=== PATIENT | female | born 1960 | race Caucasian/White ===

== ENCOUNTER 2017-11-15 13:25 | Emergency (ER) | payer MEDICARE, OTHER ==
[2017-11-15 13:33] VITALS: BP 165/99; PULSE 71; RESP 18; TEMP 98.5
--- NOTE | 2017-11-15 14:01 | XR ---
EXAMINATION TYPE: XR ankle complete LT , 3 VIEWS DATE OF EXAM ORDERED: 11/15/2017 HISTORY: Pain. COMPARISON: None. FINDINGS: No fracture, dislocation or ankle joint effusion is seen. IMPRESSION: NO ACUTE OSSEOUS LESION.
--- NOTE | 2017-11-15 14:13 | ED ---
Lower Extremity Injury HPI - General Chief Complaint: Extremity Injury, Lower Stated Complaint: lt ankle injury Time Seen by Provider: 11/15/17 13:42 Source: patient, RN notes reviewed Mode of arrival: wheelchair Limitations: no limitations - History of Present Illness Initial Comments: This is a 57-year-old female who presents to the emergency department with chief complaint of left ankle injury. Patient states her on October 28 she rolled her left ankle. She states that she has been wearing a brace, wrapping it, applying ice and elevating it. Patient states that she has been on it a lot while camping and boating. Patient has been bearing weight and ambulating. She states that the ankle does not seem to be getting any better. Patient requests an Aircast. She denies any other injury or trauma. Reports pain to the lateral aspect of the left ankle. Denies recent fevers or chills, chest pain or shortness of breath, abdominal pain, nausea or vomiting, numbness or tingling. - Related Data Allergies Allergy/AdvReac Type Severity Reaction Status Date / Time amoxicillin [From Augmentin] Allergy Diarrhea Verified 11/15/17 13:29 baclofen Allergy Unknown Verified 11/15/17 13:29 clavulanic acid Allergy Diarrhea Verified 11/15/17 13:29 [From Augmentin] diclofenac [From Cataflam] Allergy Itching Verified 11/15/17 13:29 lisinopril Allergy Swelling Verified 11/15/17 13:29 Review of Systems ROS Statement: Those systems with pertinent positive or pertinent negative responses have been documented in the HPI. ROS Other: All systems not noted in ROS Statement are negative. Past Medical History Past Medical History: Hypertension History of Any Multi-Drug Resistant Organisms: None Reported Past Surgical History: Orthopedic Surgery Additional Past Surgical History / Comment(s): both shoulders Past Psychological History: Anxiety Smoking Status: Current every day smoker Past Alcohol Use History: Daily Past Drug Use History: None Reported General Exam - General Exam Comments Initial Comments: General: Awake and alert, well-developed; in no apparent distress. HEENT: Head atraumatic, normocephalic. Pupils are equal, round and reactive to light. Extraocular movements intact. Oropharynx moist without erythema or exudate. Neck: Supple. Normal ROM. Cardiovascular: Regular rate and rhythm. No murmurs, rubs or gallops. Chest symmetrical. Respiratory: Lungs clear to auscultation bilaterally. No wheezes, rales or rhonchi. Normal respiratory effort with no use of accessory muscles. Musculoskeletal: Normal range of motion of the left ankle. There is mild soft tissue swelling and tenderness over the lateral malleolus. No tenderness on palpation of foot or proximal lower extremity. Sensation is intact. Pedal pulses are 2+ equal and palpable bilaterally. Patient is ambulating normally. Skin: [place], warm and dry without rashes or lesions. Neurological: Alert and oriented x3. CN II-XII grossly intact. Speech is fluent and answers are appropriate. No focal neuro deficits. Psychiatric: Normal mood and affect. No overt signs of depression or anxiety noted. Limitations: no limitations Course Vital Signs 11/15/17 13:29 Temperature 98.5 F Pulse Rate 71 Respiratory 18 Rate Blood Pressure 165/99 O2 Sat by Pulse 100 Oximetry Medical Decision Making - Medical Decision Making This is a 57-year-old female who presents to the emergency department with chief complaint of left ankle injury. Patient reports rolling her ankle around October 28. Reports no improvement. She has been bearing weight and ambulate. X- ray was obtained which revealed no acute abnormalities. Patient is that she has been on it a lot. Patient provided with an air cast. She is also provided with follow-up to orthopedics if no improvement in her symptoms. Recommended rest, ice, elevation and to wear the Aircast while ambulating. Patient is in agreement with plan and voices understanding. She is in no acute distress and will be discharged home at this time. All questions answered. Disposition Clinical Impression: Ankle sprain and strain Disposition: HOME SELF-CARE Condition: Good Instructions: Ankle Sprain (ED) Additional Instructions: Please rest, ice, elevate and wear air cast while ambulating. Please follow-up with orthopedics if no improvement in symptoms. Please follow up with primary care provider within 1-2 days. Return to emergency department if symptoms should worsen or any concerns arise. Is patient prescribed a controlled substance at d/c from ED?: No Referrals: Nonstaff,Physician [Primary Care Provider] - 1-2 days Avni Lorenzo MD [STAFF PHYSICIAN] - 1-2 days Time of Disposition: 14:10
== END 2017-11-15 14:18 | disposition home or self-care (01) ==
LOC: EC 13:25
DX: S93.402A Sprain of unspecified ligament of left ankle, initial encounter (principal); S96.912A Strain of unspecified muscle and tendon at ankle and foot level, left foot, initial encounter; F17.200 Nicotine dependence, unspecified, uncomplicated; Z88.0 Allergy status to penicillin; Z88.6 Allergy status to analgesic agent; Z88.8 Allergy status to other drugs, medicaments and biological substances; X50.1XXA Overexertion from prolonged static or awkward postures, initial encounter
CPT/HCPCS: 99283

== ENCOUNTER 2018-01-06 06:01 | Emergency (ER) | payer OTHER, MEDICARE ==
[2018-01-06 06:09] VITALS: TEMP 97.9
[2018-01-06 06:37] LABS: Appearance,Urine Clear (Clear); Basophils # (A) 0.1 k/uL (0-0.2); Basophils % (A) 1 %; Bilirubin,Urine Negative (Negative); Blood,Urine Negative (Negative); Color,Urine Colorless; Eosinophils # (A) 0.5 k/uL (0-0.7); Eosinophils % (A) 6 %; Glucose,Urine (UA) Negative (Negative); HCT 37.5 % (34.0-46.0); HGB 11.9 gm/dL (11.4-16.0); Ketones,Urine Negative (Negative); Leukocyte Esterase,Urine Negative (Negative); Lymphocytes % (A) 33 %; MCH 31.7 pg (25.0-35.0); MCHC 31.7 g/dL (31.0-37.0); MCV 99.9 fL (80.0-100.0); Macrocytosis Slight; Mean Platelet Volume 6.2; Monocytes # (A) 0.5 k/uL (0-1.0); Monocytes % (A) 5 %; Neutrophils # (A) 4.8 k/uL (1.3-7.7); Neutrophils % (A) 53 %; Nitrite,Urine Negative (Negative); Platelet Count 417 k/uL (150-450); Protein,Urine Negative (Negative); RBC 3.75 m/uL (3.80-5.40); RDW 13.9 % (11.5-15.5); Specific Gravity,Urine 1.002 (1.001-1.035); Urobilinogen,Urine <2.0 mg/dL (<2.0)
[2018-01-06 06:46] LABS: ALT 47 U/L (9-52); AST 45 U/L (14-36); Albumin 4.3 g/dL (3.5-5.0); Alkaline Phosphatase 83 U/L (38-126); Amylase 51 U/L (30-110); Anion Gap 12 mmol/L; Blood Urea Nitrogen 6 mg/dL (7-17); Calcium 9.3 mg/dL (8.4-10.2); Carbon Dioxide 22 mmol/L (22-30); Chloride 106 mmol/L (98-107); Glucose 88 mg/dL (74-99); Lipase 67 U/L (23-300); Potassium 4.5 mmol/L (3.5-5.1); Sodium 140 mmol/L (137-145); Total Bilirubin 0.3 mg/dL (0.2-1.3); Total Protein 7.3 g/dL (6.3-8.2)
--- NOTE | 2018-01-06 06:53 | XR ---
EXAMINATION TYPE: XR KUB DATE OF EXAM: 01/06/2018 COMPARISON: NONE HISTORY: Abdominal pain TECHNIQUE: 2 views upright FINDINGS: There is no sign of intestinal obstruction or pneumoperitoneum. Fecal pattern is normal. Mck[place] ng bases are clear. There are no pathologic calcifications over the kidneys. IMPRESSION: Nonacute abdomen.
[2018-01-06] MEDS ORDERED: DICYCLOMINE 10 MG/ML 2 ML AMP IM STA (06:54)
--- NOTE | 2018-01-06 06:54 | ED ---
Abdominal Pain HPI - General Source: patient Mode of arrival: wheelchair Limitations: no limitations - History of Present Illness MD Complaint: abdominal pain Onset/Timin -: week(s) Location: suprapubic Radiation: none Migration to: no migration Severity: severe Quality: cramping Consistency: constant Improves With: nothing Worsens With: nothing Associated Symptoms: denies other symptoms <Rodrigo Mayes - Last Filed: 01/06/18 07:12> <Tee Morgan - Last Filed: 01/06/18 07:39> - General Chief Complaint: Abdominal Pain Stated Complaint: abd pain Time Seen by Provider: 01/06/18 06:11 - History of Present Illness Initial Comments: This patient is 57-year-old woman who presents to be evaluated for which she believes is uterine cramping. She indicates the suprapubic area. She states it is been going on for a week. She states it is constant. The pain has been moderate but is now severe. She has not noted worsening or relieving factors. The patient states that she had seen her primary physician and he had sent her to have a pelvic ultrasound, which she had yesterday. She states that the ultrasound did make the symptoms a little worse. Patient has not had any associated symptoms. She is not having vaginal bleeding. She has not had any change in urination. In relation to bowel movements, patient had felt that she was constipated however she did have a bowel movement yesterday and is no longer feeling this way. There is no nausea or vomiting. She has not had fevers or chills. (Rodrigo Mayes) - Related Data Home Medications Medication Instructions Recorded Confirmed ALPRAZolam [Xanax] 0.5 mg PO BID PRN 01/06/18 01/06/18 Cholecalciferol (Vitamin D3) 2,000 unit PO DAILY 01/06/18 01/06/18 [Vitamin D3] Cyclobenzaprine [Flexeril] 10 mg PO BID 01/06/18 01/06/18 Escitalopram [Lexapro] 30 mg PO DAILY 01/06/18 01/06/18 Hydrocodone/Acetaminophen [[place] 1 tab PO Q6HR PRN 01/06/18 01/06/18 5-325] Ibuprofen [Motrin] 800 mg PO TID 01/06/18 01/06/18 Losartan/Hydrochlorothiazide 1 tab PO DAILY 01/06/18 01/06/18 [Hyzaar 100-25 Tablet] [place]-3 Fatty Acids/Fish Oil [Fish 1 cap PO DAILY 01/06/18 01/06/18 Oil 1,000 mg Softgel] Vitamin E Acetate [Vitamin E] 200 unit PO DAILY 01/06/18 01/06/18 Allergies Allergy/AdvReac Type Severity Reaction Status Date / Time amoxicillin [From Augmentin] Allergy Diarrhea Verified 01/06/18 07:30 baclofen Allergy Unknown Verified 01/06/18 07:30 clavulanic acid Allergy Diarrhea Verified 01/06/18 07:30 [From Augmentin] diclofenac [From Cataflam] Allergy Itching Verified 01/06/18 07:30 lisinopril Allergy Swelling Verified 01/06/18 07:30 Review of Systems ROS Other: All systems not noted in ROS Statement are negative. Constitutional: Denies: fever, chills Respiratory: Denies: cough, dyspnea Cardiovascular: Denies: chest pain, palpitations, edema Gastrointestinal: Reports: abdominal pain. Denies: nausea, vomiting, diarrhea, constipation, melena, hematochezia Genitourinary: Denies: dysuria, frequency, hematuria, abnormal menses Musculoskeletal: Denies: back pain Skin: Denies: rash Neurological: Denies: headache <Rodrigo Mayes - Last Filed: 01/06/18 07:12> ROS Other: All systems not noted in ROS Statement are negative. <Tee Morgan - Last Filed: 01/06/18 07:39> ROS Statement: Those systems with pertinent positive or pertinent negative responses have been documented in the HPI. Past Medical History Past Medical History: Hypertension History of Any Multi-Drug Resistant Organisms: None Reported Past Surgical History: Orthopedic Surgery Additional Past Surgical History / Comment(s): both shoulders Past Psychological History: Anxiety, Depression Smoking Status: Current every day smoker Past Alcohol Use History: Daily Past Drug Use History: None Reported <Rodrigo Mayes - Last Filed: 01/06/18 07:12> General Exam Limitations: no limitations General appearance: alert, in no apparent distress Head exam: Present: atraumatic, normocephalic Eye exam: Present: normal appearance Respiratory exam: Present: normal lung sounds bilaterally. Absent: respiratory distress, wheezes, rales, rhonchi, stridor Cardiovascular Exam: Present: regular rate, normal rhythm, normal heart sounds. Absent: systolic murmur, diastolic murmur, rubs, gallop GI/Abdominal exam: Present: soft. Absent: distended, tenderness, guarding, rebound, rigid, mass, pulsatile mass, hernia Extremities exam: Present: normal inspection, normal capillary refill. Absent: pedal edema, calf tenderness Back exam: Present: normal inspection. Absent: CVA tenderness (R), CVA tenderness (L) Neurological exam: Present: alert Skin exam: Present: warm, dry, intact, normal color. Absent: rash <Rodrigo Mayes - Last Filed: 01/06/18 07:12> Vital Signs 01/06/18 01/06/18 06:06 06:15 Temperature 97.9 F Pulse Rate 87 Respiratory 22 17 Rate Blood Pressure 162/88 O2 Sat by Pulse 99 Oximetry Medical Decision Making - Lab Data Result diagrams: 01/06/18 06:25 01/06/18 06:25 <Rodrigo Mayes - Last Filed: 01/06/18 07:12> - Lab Data Result diagrams: 01/06/18 06:25 01/06/18 06:25 <Tee Morgan - Last Filed: 01/06/18 07:39> - Medical Decision Making Received a faxed report of the patient's pelvic ultrasound which is within normal limits. (Rodrigo Mayes) patient care signed out to me by previous shift physician. plan at sign out was to repeat abdominal examination and determine disposition s/p administration of bentyl. patient states her symptoms are improved. repeat abdominal exam shows no worrisome findings. patient to be discharged with follow up to primary care physician. (Tee Morgan) - Lab Data Lab Results 01/06/18 01/06/18 01/06/18 Range/Units 06:25 06:25 06:25 WBC 9.0 (3.8-10.6) k/uL RBC 3.75 L (3.80-5.40) m/uL Hgb 11.9 (11.4-16.0) gm/dL Hct 37.5 (34.0-46.0) % MCV 99.9 (80.0-100.0) fL MCH 31.7 (25.0-35.0) pg MCHC 31.7 (31.0-37.0) g/dL RDW 13.9 (11.5-15.5) % Plt Count 417 (150-450) k/uL Neutrophils % 53 % Lymphocytes % 33 % Monocytes % 5 % Eosinophils % 6 % Basophils % 1 % Neutrophils # 4.8 (1.3-7.7) k/uL Lymphocytes # 3.0 (1.0-4.8) k/uL Monocytes # 0.5 (0-1.0) k/uL Eosinophils # 0.5 (0-0.7) k/uL Basophils # 0.1 (0-0.2) k/uL Macrocytosis Slight Sodium 140 (137-145) mmol/L Potassium 4.5 (3.5-5.1) mmol/L Chloride 106 (98-107) mmol/L Carbon Dioxide 22 (22-30) mmol/L Anion Gap 12 mmol/L BUN 6 L (7-17) mg/dL Creatinine 0.58 (0.52-1.04) mg/dL Est GFR (CKD-EPI)AfAm >90 (>60 ml/min/1.73 sqM) Est GFR (CKD-EPI)NonAf >90 (>60 ml/min/1.73 sqM) Glucose 88 (74-99) mg/dL Calcium 9.3 (8.4-10.2) mg/dL Total Bilirubin 0.3 (0.2-1.3) mg/dL AST 45 H (14-36) U/L ALT 47 (9-52) U/L Alkaline Phosphatase 83 (38-126) U/L Total Protein 7.3 (6.3-8.2) g/dL Albumin 4.3 (3.5-5.0) g/dL Amylase 51 (30-110) U/L Lipase 67 (23-300) U/L Urine Color Colorless Urine Appearance Clear (Clear) Urine pH 6.0 (5.0-8.0) Ur Specific [place] 1.002 (1.001-1.035) Urine Protein Negative (Negative) Urine Glucose (UA) Negative (Negative) Urine Ketones Negative (Negative) Urine Blood Negative (Negative) Urine Nitrite Negative (Negative) Urine Bilirubin Negative (Negative) Urine Urobilinogen <2.0 (<2.0) mg/dL Ur Leukocyte Esterase Negative (Negative) Disposition <Rodrigo Mayes - Last Filed: 01/06/18 07:12> Is patient prescribed a controlled substance at d/c from ED?: No Time of Disposition: 07:37 <Tee Morgan - Last Filed: 01/06/18 07:39> Clinical Impression: Abdominal pain Disposition: HOME SELF-CARE Condition: Good Instructions: Abdominal Pain (ED) Referrals: Nonstaff,Physician [Primary Care Provider] - 1-2 days
[2018-01-06 07:50] VITALS: BP 125/69; PULSE 66; RESP 18
== END 2018-01-06 07:45 | disposition home or self-care (01) ==
LOC: EC 06:01
DX: R10.9 Unspecified abdominal pain (principal); I10 Essential (primary) hypertension; F32.9 Major depressive disorder, single episode, unspecified; F41.9 Anxiety disorder, unspecified; F17.200 Nicotine dependence, unspecified, uncomplicated; Z79.899 Other long term (current) drug therapy; Z79.1 Long term (current) use of non-steroidal anti-inflammatories (NSAID); Z88.0 Allergy status to penicillin; Z88.8 Allergy status to other drugs, medicaments and biological substances
CPT/HCPCS: 36415; 80053; 82150; 83690; 85025; 81003; 74018; 99284; 96372; J0500

== ENCOUNTER → 2019-10-18 | Outpatient (CLI) | payer MEDICARE, OTHER ==
--- NOTE | 2019-10-18 15:29 | US ---
EXAMINATION TYPE: US venous doppler duplex LE LT DATE OF EXAM: 10/18/2019 3:17 PM COMPARISON: NONE CLINICAL HISTORY: I80.9 PHLEBITIS AND THROMBOPHLEBITIS. SIDE PERFORMED: Left TECHNIQUE: The lower extremity deep venous system is examined utilizing real time linear array sonog judy with graded compression, doppler sonography and color-flow sonography. VESSELS IMAGED: External Iliac Vein (EIV) Common Femoral Vein Deep Femoral Vein Greater Saphenous Vein * Femoral Vein Popliteal Vein Small Saphenous Vein * Proximal Calf Veins (* superficial vessels) Left Leg: Negative for DVT IMPRESSION: 1. No diagnostic evidence of DVT as visualized.
== END | disposition home or self-care (01) ==
LOC: RADUSWWP 14:51
PROVIDERS: ATTEND Orthopaedic Surgery
DX: M25.562 Pain in left knee (principal); M17.12 Unilateral primary osteoarthritis, left knee; I80.9 Phlebitis and thrombophlebitis of unspecified site

== ENCOUNTER → 2020-04-17 | Outpatient (CLI) | payer MEDICARE, OTHER ==
[2020-04-17 22:30] LABS: Anion Gap 13.4 mmol/L (4.00-12.00); Carbon Dioxide 23.6 mmol/L (21.6-31.8); Potassium 4.4 mmol/L (3.5-5.5)
== END | disposition home or self-care (01) ==
LOC: LABWHC1 13:51
PROVIDERS: ATTEND Family Medicine
DX: E87.1 Hypo-osmolality and hyponatremia (principal)
CPT/HCPCS: 36415; 80051

== ENCOUNTER 2021-06-17 17:24 | Emergency (ER) | payer MEDICARE, OTHER ==
[2021-06-17 17:42] VITALS: RESP 16; TEMP 98.1
[2021-06-17] MEDS ORDERED: LORazepam 2 MG/ML INJ IV STA (17:50)
[2021-06-17 18:00] LABS: Basophils # (A) 0.1 k/uL (0-0.2); Basophils % (A) 1 %; Eosinophils # (A) 0.3 k/uL (0-0.7); Eosinophils % (A) 3 %; Lymphocytes # (A) 2.7 k/uL (1.0-4.8); Lymphocytes % (A) 21 %; MCH 33.9 pg (25.0-35.0); MCHC 34.2 g/dL (31.0-37.0); MCV 99.1 fL (80.0-100.0); Mean Platelet Volume 7.1; Monocytes # (A) 0.5 k/uL (0-1.0); Monocytes % (A) 4 %; Neutrophils # (A) 9.4 k/uL (1.3-7.7); Neutrophils % (A) 71 %; Platelet Count 447 k/uL (150-450); RBC 3.84 m/uL (3.80-5.40); WBC 13.2 k/uL (3.8-10.6)
--- NOTE | 2021-06-17 18:16 | ED ---
Chest Pain HPI - General Chief Complaint: Chest Pain Stated Complaint: chest pain Time Seen by Provider: 06/17/21 17:35 Source: patient Mode of arrival: EMS Limitations: no limitations - History of Present Illness Initial Comments: Nancy is a 61-year-old female with history of hypertension and hyperlipidemia who presents to the emergency department today via ambulance for evaluation of chest pain. Patient denies any cardiac history. She states that she had a very stressful day today, she was at her sister's house, her sister was acutely suicidal she was trying to speak with her. Patient states that during this conversation she began feeling some left-sided sharp chest pain. Patient states she thought she needed take a Xanax but her family was with what her an incentive called. Patient did take a total of 4 baby aspirin prior to arrival. She does not get nitro or aspirin from EMS. Upon arrival here patient states she feels like she is having a panic attack. - Related Data Home Medications Medication Instructions Recorded Confirmed Cyclobenzaprine [Flexeril] 10 mg PO BID PRN 01/06/18 06/17/21 Escitalopram [Lexapro] 10 mg PO DAILY 01/06/18 06/17/21 Hydrocodone/Acetaminophen [[place] 1 tab PO BID PRN 01/06/18 06/17/21 5-325] Ibuprofen [Motrin] 800 mg PO TID PRN 01/06/18 06/17/21 [place]-3 Fatty Acids/Fish Oil [Fish 1 cap PO DAILY 01/06/18 06/17/21 Oil 1,000 mg Softgel] Vitamin E (Dl,Tocopheryl Acet) 200 unit PO DAILY 01/06/18 06/17/21 [Vitamin E] ALPRAZolam [Xanax] 0.25 mg PO DAILY PRN 06/17/21 06/17/21 Clobetasol Propionate [Temovate 1 applic TOPICAL BID 06/17/21 06/17/21 0.05% Cream] Escitalopram [Lexapro] 20 mg PO DAILY 06/17/21 06/17/21 Fluticasone Nasal [place] [Flonase 1 spray EA NOSTRIL DAILY 06/17/21 06/17/21 Nasal [place]] Loratadine 10 mg PO DAILY 06/17/21 06/17/21 Losartan Potassium 100 mg PO DAILY 06/17/21 06/17/21 Multivitamins, Thera [Multivitamin 1 tab PO DAILY 06/17/21 06/17/21 (formulary)] Vitamin D3 With Vit C (Unknown 1 tab PO DAILY 06/17/21 06/17/21 Strength) hydroCHLOROthiazide 25 mg PO DAILY 06/17/21 06/17/21 Allergies Allergy/AdvReac Type Severity Reaction Status Date / Time amoxicillin [From Augmentin] Allergy Diarrhea Verified 06/17/21 18:23 baclofen Allergy Unknown Verified 06/17/21 18:23 clavulanic acid Allergy Diarrhea Verified 06/17/21 18:23 [From Augmentin] diclofenac [From Cataflam] Allergy Itching Verified 06/17/21 18:23 lisinopril Allergy Swelling Verified 06/17/21 18:23 face Review of Systems ROS Statement: Those systems with pertinent positive or pertinent negative responses have been documented in the HPI. ROS Other: All systems not noted in ROS Statement are negative. EKG Findings - EKG Comments: EKG Findings:: EKG was obtained due to complaint of chest pain, EKG was obtained at 1738, rate is 75 rhythm is sinus leftward axis normal intervals, OR 167, QRS 99, QTC mildly prolonged at 4:30. There is no acute ST elevations or depressions no evidence of ischemia or infarction. Past Medical History Past Medical History: Hypertension Additional Past Medical History / Comment(s): trigeminy History of Any Multi-Drug Resistant Organisms: None Reported Past Surgical History: Orthopedic Surgery Additional Past Surgical History / Comment(s): both shoulders Past Psychological History: Anxiety, Depression Smoking Status: Current every day smoker Past Alcohol Use History: Daily Past Drug Use History: Marijuana General Exam - General Exam Comments Initial Comments: Physical Exam GENERAL: Patient is well-developed and well-nourished. Patient is nontoxic and well- hydrated and is in no distress. HENT: Normocephalic, Atraumatic. EYES: PERRL, EOMI PULMONARY: Unlabored respirations. No audible rales rhonchi or wheezing was noted. CARDIOVASCULAR: There is a regular rate and rhythm without any murmurs gallops or rubs. ABDOMEN: Soft and nontender with normal bowel sounds. SKIN: Skin is clear with no lesions or rashes and otherwise unremarkable. : Deferred NEUROLOGIC: Patient is alert and oriented x3. Moving all extremities spontaneously MUSCULOSKELETAL: Normal extremities with adequate strength and full range of motion. No lower extremity swelling or edema. No calf tenderness. PSYCHIATRIC: Normal psychiatric evaluation. Limitations: no limitations Course Vital Signs 06/17/21 06/17/21 06/17/21 17:38 18:38 19:16 Temperature 98.1 F Pulse Rate 78 70 70 Respiratory 16 16 16 Rate Blood Pressure 183/108 170/109 166/104 O2 Sat by Pulse 96 98 Oximetry Chest Pain MDM - [facility] Patient was seen and evaluated, history is obtained from patient. Patient believes she is having a panic attack due to significant social stressors. I did offer the patient nitro she was hypertensive however patient has already had a pretty thorough knowledge of medications. She states she feels like she would like to try Ativan or Xanax first. Patient was treated with Ativan she was then noted be resting comfortably. Labs did resulted with hyponatremia and hypomagnesemia, patient did receive 1 L IV fluids and magnesium. I did offer to place the patient on observation for repeat labs and possible evaluation by nephrology for hyponatremia. Patient states that she's had hyponatremia chronically on her outpatient labs, most recent she states that her sodium was 127 that she is following with her primary care about this. I did advise the patient that her TSH was mildly elevated and she likely needs to start medication such as Synthroid which patient stated she will discuss with her primary care. She feels comfortable being discharged home at this time does not want to be admitted to the hospital. Disposition Clinical Impression: Atypical chest pain, Hyponatremia, Hypomagnesemia, Elevated TSH Disposition: HOME SELF-CARE Condition: Stable Instructions (If sedation given, give patient instructions): Chest Pain (ED) Is patient prescribed a controlled substance at d/c from ED?: No Referrals: Jon Mullins DO [Primary Care Provider] - 1-2 days
[2021-06-17 18:28] LABS: ALT 27 U/L (4-34); African American GFR (CKD) >90 (>60 ml/min/1.73 sqM); Albumin 4.2 g/dL (3.5-5.0); Anion Gap 9 mmol/L; Blood Urea Nitrogen 15 mg/dL (7-17); Calcium 9.4 mg/dL (8.4-10.2); Carbon Dioxide 25 mmol/L (22-30); Chloride 91 mmol/L (98-107); Glucose 111 mg/dL (74-99); Non-African American GFR(CKD) >90 (>60 ml/min/1.73 sqM); Sodium 125 mmol/L (137-145); Total Bilirubin 0.6 mg/dL (0.2-1.3); Total Protein 7.3 g/dL (6.3-8.2)
--- NOTE | 2021-06-17 18:35 | XR ---
EXAMINATION TYPE: XR chest 2V DATE OF EXAM: 06/17/2021 COMPARISON: NONE HISTORY: Chest pain TECHNIQUE: Frontal and lateral views of the chest are obtained. FINDINGS: There is no focal air space opacity, pleural effusion, or pneumothorax seen. The cardiac silhouette size is mildly enlarged. The osseous structures are intact. IMPRESSION: No acute cardiopulmonary process.
[2021-06-17 18:38] VITALS: PULSE 70
[2021-06-17 18:52] LABS: AST 35 U/L (14-36); Alkaline Phosphatase 79 U/L (38-126); Magnesium 1.4 mg/dL (1.6-2.3); Potassium 4.2 mmol/L (3.5-5.1)
[2021-06-17] MEDS ORDERED: MAGNESIUM SULFATE-D5W PMX 1 GM in DEXTROSE/WATER 1 100ML.BAG IVPB ONE (19:01)
[2021-06-17 19:17] VITALS: BP 166/104
[2021-06-17 19:35] LABS: INR 0.9 (<1.2); Partial Thromboplastin Time 24.9 sec (22.0-30.0); Prothrombin Time 10.3 sec (9.0-12.0)
[2021-06-17 19:39] LABS: T4, Free (Free Thyroxine) 1.01 ng/dL (0.78-2.19)
== END 2021-06-17 21:23 | disposition home or self-care (01) ==
LOC: EC 17:24
DX: R07.89 Other chest pain (principal); E87.1 Hypo-osmolality and hyponatremia; E83.42 Hypomagnesemia; R94.6 Abnormal results of thyroid function studies; I10 Essential (primary) hypertension; F32.A Depression, unspecified; F41.9 Anxiety disorder, unspecified; F17.200 Nicotine dependence, unspecified, uncomplicated; F12.90 Cannabis use, unspecified, uncomplicated; Z79.899 Other long term (current) drug therapy
CPT/HCPCS: 36415; 93005; 85379; 84439; 83880; 80053; 84443; 83735; 84484; 85025; 85610; 85730; 71046; 96365; 96375; 99285; J2060; J3475

== ENCOUNTER → 2021-08-13 | Outpatient (CLI) | payer MEDICARE, OTHER ==
--- NOTE | 2021-08-13 16:18 | BD ---
EXAMINATION TYPE: Axial Bone Density DATE OF EXAM: 08/13/2021 COMPARISON: NONE CLINICAL HISTORY: 61 years year old Female. ICD-10 CODE: M85.80 Osteopenia Height: 61 Weight: 185.0 FRAX RISK QUESTIONS: Alcohol (3 or more units per day): no Family History (Parent hip fracture): no Glucocorticoids (More than 3mos): no (Ex: prednisone, prednisolone, methylprednisolone, dexamethasone, and hydrocortisone). History of Fracture in Adulthood: yes Secondary Osteoporosis: 1. Type 1 Diabetes: no 2. Hyperthyroidism: no 3. Menopause before 45: no 4. Malnutrition: no 5. Chronic liver disease: no Rheumatoid Arthritis: yes Current Tobacco Use: yes RISK FACTORS HISTORY OF: History of Wrist Fracture: right When: as a child Surgery to Spine/Hip(right/left)/Wrist (right/left): no Family History of Osteoporosis: yes Active: no Diet low in dairy products/other sources of calcium: yes Postmenopausal woman: yes MEDICATIONS: motrin Additional History: EXAM MEASUREMENTS: Bone mineral densitometry was performed using the [employer]. Bone mineral density as measured about the Lumbar spine is: ----- L1-L4(G/cm2): 1.030 T Score Values are as follows: ----- L1: -1.2 ----- L2: -0.9 ----- L3: -1.4 ----- L4: -1.7 ----- L1-L4: -1.3 Bone mineral density : baseline Bone mineral density about the R hip (g/cm2): 0.877 Bone mineral density about the L hip (g/cm2): 0.951 T Score values are as follows: -----R Neck: -1.2 -----L Neck: -0.6 -----R Total: 0.1 -----L Total: 0.3 Bone mineral density : baseline FRAX%s: The graph provided illustrates a 9.1% chance for a major osteoporotic fx and a 1.1% chance fo r the hips probability for fx in 10 years time. IMPRESSION: Osteopenia (T Score between -2.5 and -1). There is slightly increased risk of fracture and the patient may be considered for treatment. Re-Screen 2-5 years. NOTE: T-SCORE=SD OF THE YOUNG ADULT MEAN.
--- NOTE | 2021-08-14 11:20 | MM ---
Reason for exam: screening (asymptomatic). Last mammogram was performed 19 years and 7 months ago. History: Patient is postmenopausal. Physical Findings: A clinical breast exam by your physician is recommended on an annual basis and results should be correlated with mammographic findings. MG Screening Mammo w CAD Bilateral CC and MLO view(s) were taken. Prior study comparison: August 30, 2017, mammogram, performed at [facility]. September 04, 2016, mammogram, performed at [facility]. The breast tissue is heterogeneously dense. This may lower the sensitivity of mammography. There is no discrete abnormality. No significant changes when compared with prior studies. ASSESSMENT: Negative, BI-RAD 1 RECOMMENDATION: Routine screening mammogram of both breasts in 1 year.
== END | disposition home or self-care (01) ==
LOC: RADMAMWWP 14:04
PROVIDERS: ATTEND Family Medicine
DX: Z12.31 Encounter for screening mammogram for malignant neoplasm of breast (principal); M85.89 Other specified disorders of bone density and structure, multiple sites; Z78.0 Asymptomatic menopausal state
CPT/HCPCS: 77067; 77080

== ENCOUNTER 2022-03-14 19:00 | Observation (INO) | payer MEDICARE, OTHER ==
[2022-03-14 19:11] LABS: Glucose,Whole Blood 105 mg/dL (70-110)
--- NOTE | 2022-03-14 19:19 | CT ---
EXAMINATION TYPE: CT brain wo con for TPA CT DLP: 1125.6 mGycm, Automated exposure control for dose reduction was used. DATE OF EXAM: 03/14/2022 7:14 PM COMPARISON: None. CLINICAL INDICATION:Female, 62 years old with history of Neuro deficit, acute, stroke suspected, Neur o deficit, acute, stroke suspected TECHNIQUE: Brain: Axial CT images of the brain were obtained with coronal and sagittal reformats created and rev iewed. Contrast used: None. Oral contrast used: None. FINDINGS: Brain: Extra-axial spaces: No abnormal extra-axial fluid collections. Ventricular system: Within normal limits Cerebral parenchyma: No acute intraparenchymal hemorrhage or mass effect. The quinones-white junction is well differentiated. Cerebellum: Unremarkable. Mass effect: No evidence of midline shift. Intracranial vasculature: Atherosclerotic calcifications of the intracranial vessels. Soft tissues: Normal. Calvarium/osseous structures: No depressed skull fracture. Paranasal sinuses and mastoid air cells: Mild scattered paranasal sinus disease. Visualized orbits: Orbital contents are intact. IMPRESSION: No acute intracranial process. No intercranial hemorrhage.
[2022-03-14 19:35] LABS: Basophils # (A) 0.1 k/uL (0-0.2); Basophils % (A) 1 %; Eosinophils # (A) 0.5 k/uL (0-0.7); Eosinophils % (A) 5 %; HCT 37.8 % (34.0-46.0); HGB 12.7 gm/dL (11.4-16.0); Lymphocytes # (A) 3.5 k/uL (1.0-4.8); Lymphocytes % (A) 33 %; MCH 31.5 pg (25.0-35.0); MCHC 33.5 g/dL (31.0-37.0); MCV 93.9 fL (80.0-100.0); Mean Platelet Volume 8.4; Monocytes # (A) 0.5 k/uL (0-1.0); Monocytes % (A) 5 %; Neutrophils # (A) 5.9 k/uL (1.3-7.7); Neutrophils % (A) 55 %; Platelet Count 368 k/uL (150-450); RBC 4.02 m/uL (3.80-5.40); RDW 13.5 % (11.5-15.5); WBC 10.7 k/uL (3.8-10.6)
[2022-03-14 19:49] LABS: Partial Thromboplastin Time 23.1 sec (22.0-30.0); Prothrombin Time 10.8 sec (9.0-12.0)
[2022-03-14] MEDS ORDERED: SODIUM CHLORIDE 0.9% 1,000 ML IV ONE (19:56)
--- NOTE | 2022-03-14 20:03 | ED ---
Neuro HPI - General Chief Complaint: Neuro Symptoms/Deficit Stated Complaint: CVA Time Seen by Provider: 03/14/22 19:03 Source: patient Mode of arrival: EMS Limitations: no limitations - History of Present Illness Is the patient presenting with stroke symptoms?: Yes Initial Comments: 62-year-old female with past medical history of hypertension who presents to the emergency department as a code stroke. She reports that she was at home talking to her niece when she had sudden onset of left-sided weakness. Reports weakness in her left upper and lower extremity. She also had some garbled speech. Since happened 35 minutes prior to hospital arrival. No history of stroke. Patient is not on any blood thinners. Denies any recent head trauma. This was called and they did witness the weakness. Upon transport to the hospital the symptoms have improved. No other alleviating, precipitating or modifying factors - Related Data Home Medications: Home Medications Medication Instructions Recorded Confirmed Cyclobenzaprine [Flexeril] 10 mg PO BID PRN 01/06/18 03/14/22 Escitalopram [Lexapro] 10 mg PO DAILY 01/06/18 03/14/22 Hydrocodone/Acetaminophen [[place] 1 tab PO BID PRN 01/06/18 03/14/22 5-325] [place]-3 Fatty Acids/Fish Oil [Fish 1 cap PO DAILY 01/06/18 03/14/22 Oil 1,000 mg Softgel] Vitamin E (Dl,Tocopheryl Acet) 200 unit PO DAILY 01/06/18 03/14/22 [Vitamin E] ALPRAZolam [Xanax] 0.25 mg PO DAILY PRN 06/17/21 03/14/22 Escitalopram [Lexapro] 20 mg PO DAILY 06/17/21 03/14/22 Fluticasone Nasal [place] [Flonase 1 spray EA NOSTRIL DAILY 06/17/21 03/14/22 Nasal [place]] Loratadine 10 mg PO DAILY 06/17/21 03/14/22 Losartan Potassium 100 mg PO DAILY 06/17/21 03/14/22 Multivitamins, Thera [Multivitamin 1 tab PO DAILY 06/17/21 03/14/22 (formulary)] Vitamin D3 With Vit C (Unknown 1 tab PO DAILY 06/17/21 03/14/22 Strength) Chlorthalidone [Hygroton] 25 mg PO DAILY 03/14/22 03/14/22 NIFEdipine [Adalat CC] 60 mg PO HS 03/14/22 03/14/22 Previous Rx's Medication Instructions Recorded Aspirin 81 mg PO DAILY 30 Days #30 tab 03/16/22 Atorvastatin [Lipitor] 40 mg PO DAILY 30 Days #30 tab 03/16/22 Lacosamide [Vimpat] 50 mg PO BID 60 Days #120 tab 03/16/22 Allergies/Adverse Reactions: Allergies Allergy/AdvReac Type Severity Reaction Status Date / Time amoxicillin [From Augmentin] Allergy Diarrhea Verified 03/14/22 21:15 baclofen Allergy Unknown Verified 03/14/22 21:15 clavulanic acid Allergy Diarrhea Verified 03/14/22 21:15 [From Augmentin] diclofenac [From Cataflam] Allergy Itching Verified 03/14/22 21:15 hydromorphone [From Dilaudid] Allergy Itching Verified 03/14/22 21:15 lisinopril Allergy Swelling Verified 03/14/22 21:15 face Review of Systems ROS Statement: Those systems with pertinent positive or pertinent negative responses have been documented in the HPI. ROS Other: All systems not noted in ROS Statement are negative. General Exam Limitations: no limitations General appearance: alert, in no apparent distress Head exam: Present: atraumatic, normocephalic, normal inspection Eye exam: Present: normal appearance, PERRL, EOMI. Absent: scleral icterus, conjunctival injection, periorbital swelling ENT exam: Present: normal exam, mucous membranes moist Neck exam: Present: normal inspection. Absent: tenderness, meningismus, lymphadenopathy Respiratory exam: Present: normal lung sounds bilaterally. Absent: respiratory distress, wheezes, rales, rhonchi, stridor Cardiovascular Exam: Present: regular rate, normal rhythm, normal heart sounds. Absent: systolic murmur, diastolic murmur, rubs, gallop, clicks GI/Abdominal exam: Present: soft, normal bowel sounds. Absent: distended, tenderness, guarding, rebound, rigid Extremities exam: Present: normal inspection, full ROM, normal capillary refill. Absent: tenderness, pedal edema, joint swelling, calf tenderness Back exam: Present: normal inspection Neurological exam: Present: alert, oriented X3, CN II-XII intact, other (histology tech strength 3/5 left arm. left left strength 4/5 upon arrival. no facial droop. no slurred speech) Psychiatric exam: Present: normal affect, normal mood Skin exam: Present: warm, dry, intact, normal color. Absent: rash Stroke MDM - Lab Data Result diagrams: 03/15/22 11:18 03/14/22 19:55 Lab Results 03/14/22 03/14/22 03/14/22 Range/Units 19:08 19:25 19:25 WBC 10.7 H (3.8-10.6) k/uL RBC 4.02 (3.80-5.40) m/uL Hgb 12.7 (11.4-16.0) gm/dL Hct 37.8 (34.0-46.0) % MCV 93.9 (80.0-100.0) fL MCH 31.5 (25.0-35.0) pg MCHC 33.5 (31.0-37.0) g/dL RDW 13.5 (11.5-15.5) % Plt Count 368 (150-450) k/uL MPV 8.4 Neutrophils % 55 % Lymphocytes % 33 % Monocytes % 5 % Eosinophils % 5 % Basophils % 1 % Neutrophils # 5.9 (1.3-7.7) k/uL Lymphocytes # 3.5 (1.0-4.8) k/uL Monocytes # 0.5 (0-1.0) k/uL Eosinophils # 0.5 (0-0.7) k/uL Basophils # 0.1 (0-0.2) k/uL PT 10.8 (9.0-12.0) sec INR 1.0 (<1.2) APTT 23.1 (22.0-30.0) sec Sodium (137-145) mmol/L Potassium (3.5-5.1) mmol/L Chloride (98-107) mmol/L Carbon Dioxide (22-30) mmol/L Anion Gap mmol/L BUN (7-17) mg/dL Creatinine (0.52-1.04) mg/dL Est GFR (CKD-EPI)AfAm (>60 ml/min/1.73 sqM) Est GFR (CKD-EPI)NonAf (>60 ml/min/1.73 sqM) Glucose (74-99) mg/dL POC Glucose (mg/dL) 105 (70-110) mg/dL POC Glu Warehouse Team Leader ID Charlee Estevez Calcium (8.4-10.2) mg/dL Total Bilirubin (0.2-1.3) mg/dL AST (14-36) U/L ALT (4-34) U/L Alkaline Phosphatase (38-126) U/L Troponin I (0.000-0.034) ng/mL Total Protein (6.3-8.2) g/dL Albumin (3.5-5.0) g/dL 03/14/22 03/14/22 Range/Units 19:55 19:55 WBC (3.8-10.6) k/uL RBC (3.80-5.40) m/uL Hgb (11.4-16.0) gm/dL Hct (34.0-46.0) % MCV (80.0-100.0) fL MCH (25.0-35.0) pg MCHC (31.0-37.0) g/dL RDW (11.5-15.5) % Plt Count (150-450) k/uL MPV Neutrophils % % Lymphocytes % % Monocytes % % Eosinophils % % Basophils % % Neutrophils # (1.3-7.7) k/uL Lymphocytes # (1.0-4.8) k/uL Monocytes # (0-1.0) k/uL Eosinophils # (0-0.7) k/uL Basophils # (0-0.2) k/uL PT (9.0-12.0) sec INR (<1.2) APTT (22.0-30.0) sec Sodium 134 L (137-145) mmol/L Potassium 3.5 (3.5-5.1) mmol/L Chloride 99 (98-107) mmol/L Carbon Dioxide 23 (22-30) mmol/L Anion Gap 12 mmol/L BUN 19 H (7-17) mg/dL Creatinine 0.95 (0.52-1.04) mg/dL Est GFR (CKD-EPI)AfAm 75 (>60 ml/min/1.73 sqM) Est GFR (CKD-EPI)NonAf 65 (>60 ml/min/1.73 sqM) Glucose 91 (74-99) mg/dL POC Glucose (mg/dL) (70-110) mg/dL POC Glu Warehouse Team Leader ID Calcium 9.3 (8.4-10.2) mg/dL Total Bilirubin 0.2 (0.2-1.3) mg/dL AST 20 (14-36) U/L ALT 18 (4-34) U/L Alkaline Phosphatase 78 (38-126) U/L Troponin I 0.015 (0.000-0.034) ng/mL Total Protein 6.8 (6.3-8.2) g/dL Albumin 4.2 (3.5-5.0) g/dL - Medical Decision Making Upon arrival patient was placed into trauma 2. A thorough history and physical exam was performed. IV access was established. NIH is assessed and the patient does have a score of 6. She is sent for CT imaging of her brain. Laboratory studies were conducted and reviewed. Laboratory studies within normal limits. CT and CT angiography negative. I spoke with Dr. Martínez. Patient is reevaluated and does have improvement in her NIH to 3 and then eventually to 0. I did discuss alteplase menstruation with the patient for which she does refused this medication. Patient does have rapidly improving symptoms and therefore risks of providing medication outweigh the benefits. I did discuss the results with the patient. Did recommend admission for which she was agreeable. Spoke with Dr. Quintana who agreed to admit the patient 03/14/22 20:03 EKG demonstrates sinus rhythm with a rate of 68. IA interval 168. QRS 104. QTC of 479. No acute ST segment elevations or depressions concerning for ischemic changes Past Medical History Past Medical History: Hypertension Additional Past Medical History / Comment(s): trigeminy History of Any Multi-Drug Resistant Organisms: None Reported Past Surgical History: Orthopedic Surgery Additional Past Surgical History / Comment(s): both shoulders Past Psychological History: Anxiety, Depression Smoking Status: Current every day smoker Past Alcohol Use History: Daily Past Drug Use History: Marijuana - Past Family History Mother Family Medical History: Hypertension Course Vital Signs 03/14/22 03/14/22 03/14/22 19:22 19:31 20:45 Temperature 97.5 F L 97.5 F L Pulse Rate 68 68 66 Respiratory 18 18 15 Rate Blood Pressure 102/70 102/70 101/69 O2 Sat by Pulse 91 L 93 L 92 L Oximetry Critical Care Time Critical Care Time: Yes Critical Care Time: 32 minutes Disposition Clinical Impression: TIA (transient ischemic attack) Disposition: ADMITTED IP TO THIS [facility] Condition: Stable Is patient prescribed a controlled substance at d/c from ED?: No Time of Disposition: 21:04 Decision to Admit Reason: Admit from EC Decision Date: 03/14/22 Decision Time: 21:04
--- NOTE | 2022-03-14 20:10 | CT ---
EXAMINATION TYPE: CT angio head neck CT DLP: 373 mGycm, Automated exposure control for dose reduction was used. DATE OF EXAM: 03/14/2022 8:03 PM COMPARISON: . Cine CT head. CLINICAL INDICATION:Female, 62 years old with history of Neuro deficit, acute, stroke suspected; TECHNIQUE: Axially acquired helical CT angiogram of the head and neck was obtained with contrast. Axi al images are supplemented with 3D reconstructions which [facility] NASCET criteria used. Contrast used:65cc mL of Isovue 370 with IV Contrast, Oral contrast used: None. FINDINGS: CTA HEAD: No evidence of acute intracranial hemorrhage, mass effect, or midline shift. The ventricles, sulci, a nd cisterns are unremarkable. The visualized portions of the internal carotid arteries, middle cerebral arteries, anterior cerebral arteries, and posterior cerebral arteries are patent. The basilar and vertebral arteries are patent. CTA NECK: Right Carotid System: The common carotid artery and external carotid artery are patent. The carotid bifurcation demonstrate s no evidence of hemodynamically significant stenosis. Minimal calcified plaque at the bifurcation. T he remaining portions of the internal carotid artery demonstrate normal size without significant narr owing. Left Carotid System: The common carotid artery and external carotid artery are patent. The carotid bifurcation demonstrate s no evidence of hemodynamically significant stenosis. Minimal calcified plaque at the bifurcation. T he remaining portions of the internal carotid artery demonstrate normal size without significant narr owing. Vertebral arteries are patent without evidence hemodynamically significant stenosis. There is a three-vessel aortic arch. The origins of the great vessels are patent. No evidence of hemo dynamically significant stenosis. IMPRESSION: 1. No evidence of dissection of the cervical internal carotid arteries or vertebral arteries or any e vidence of significant stenosis at the carotid bifurcations. 2. No evidence of intracranial high-grade stenosis or intracranial aneurysm.
[2022-03-14 20:29] LABS: Albumin 4.2 g/dL (3.5-5.0); Calcium 9.3 mg/dL (8.4-10.2); Potassium 3.5 mmol/L (3.5-5.1); Total Bilirubin 0.2 mg/dL (0.2-1.3); Total Protein 6.8 g/dL (6.3-8.2)
--- NOTE | 2022-03-14 21:02 | XR ---
EXAMINATION TYPE: XR chest 2V DATE OF EXAM: 03/14/2022 8:37 PM COMPARISON: Chest radiographs from 06/23/2021 TECHNIQUE: XR chest 2V Frontal and lateral views of the chest. CLINICAL INDICATION:Female, 62 years old with history of altered mental status; FINDINGS: Lungs/Pleura: Prominent interstitial lung markings are seen scattered throughout the lungs. No eviden ce of focal consolidation, pneumothorax or pleural effusion. Pulmonary vascularity: Unremarkable. Heart/mediastinum: Cardiomediastinal silhouette is enlarged and stable. Musculoskeletal: No acute osseous pathology. IMPRESSION: Similar cardiomegaly and lung appearance dating back to 06/17/2021. No evidence of acute process.
[2022-03-14] MEDS ORDERED: ASPIRIN 325 MG TAB PO STA (21:06)
[2022-03-14] MEDS ORDERED: SODIUM CHLORIDE 0.9% 1,000 ML IV SCH (21:15)
[2022-03-14] MEDS: ATORVASTATIN 40 MG TAB PO SCH (23:44)
[2022-03-15] MEDS ORDERED: ALPRAZolam 0.25 MG TAB PO PRN (01:41)
[2022-03-15] MEDS ORDERED: CYCLOBENZAPRINE 10 MG TAB PO PRN (01:41)
--- NOTE | 2022-03-15 01:41 | P.HPIM ---
History of Present Illness H&P Date: 03/14/22 The patient is a 62-year-old female with a PMH of hypertension and tobacco abuse who presents to the emergency room with concerns for stroke. The patient reports that she was in her usual state of health until about 6:30 PM earlier tonight when she suddenly developed left upper and lower extremity weakness and difficulty speaking. The patient states that she was able to find the words but the words came out garbled. The patient who is a retired ICU nurse immediately activated EMS. The patient states that her symptoms began to improve en route to the hospital. Shortly after arrival at the emergency room, all her symptoms had resolved. CT brain and CT angiogram of head and neck were unremarkable. At 68 bpm. The case was discussed by the ED physician with the neuro-chopped strand operator on-call who recommended aspirin and statin. At time of interview, the patient states that she continues to be at her baseline and had no active complaints. She denied any prior history of CVA. Denied experiencing visual disturbances, numbness, or tingling. Also denied chest discomfort, shortness of breath, fever, chills, cough. Laboratory evaluation was reviewed and was remarkable for leukocytosis at 10.7. Chest x-ray revealed cardiomegaly unchanged from May of this year. Review of systems: Pertinent positives and negatives as discussed in HPI, a complete review of s ystems was performed and all other systems are negative. Physical examination: General: non toxic, no distress, appears at stated age, overweight Derm: no unusual rashes/lesions, warm Head: atraumatic, normocephalic, symmetric Eyes: EOMI, no lid lag, anicteric sclera, pupils equal round reactive to light ENT: Nose and ears atraumatic Neck: No cervical lymphadenopathy, trachea midline, supple Mouth: no lip lesion, mucus membranes moist Cardiovascular: S1S2 reg, no murmur, positive dorsalis pedis pulse bilateral, no edema Lungs: CTA bilateral, no rhonchi, no rales, no accessory muscle use Abdominal: soft, nontender to palpation, no guarding Ext: muscle strength 5 out of 5 in all 4 extremities grossly, no gross muscle atrophy, no contractures, Neuro: CN II-XI grossly intact, no gross focal neuro deficits Psych: Alert, oriented, appropriate affect Assessment/plan TIA -Neuro checks -Fall precautions -Neurology consult -Echocardiogram -Cardiac monitoring -PT consult, AIR POLLUTION AUDITOR bala -Counseled on importance of smoking cessation -Follow-up lipid panel -Continue with aspirin, statin Leukocytosis -Likely secondary to acute stressor -No signs of active infection at this time -Monitor for now Chronic conditions: Hypertension -Continue with home meds DVT prophylaxis -Heparin subcu The patient is admitted with an anticipated less than 2 midnight stay for evaluation of TIA. CODE STATUS: Full Code Discussed with: Patient Anticipated discharge date: In a.m. Anticipated discharge place: Home Past Medical History Past Medical History: Hypertension Additional Past Medical History / Comment(s): trigeminy History of Any Multi-Drug Resistant Organisms: None Reported Past Surgical History: Orthopedic Surgery Additional Past Surgical History / Comment(s): both shoulders Past Psychological History: Anxiety, Depression Smoking Status: Current every day smoker Past Alcohol Use History: Daily Past Drug Use History: Marijuana - Past Family History Mother Family Medical History: Hypertension Medications and Allergies Home Medications Medication Instructions Recorded Confirmed Type Cyclobenzaprine [Flexeril] 10 mg PO BID PRN 01/06/18 03/14/22 History Escitalopram [Lexapro] 10 mg PO DAILY 01/06/18 03/14/22 History Hydrocodone/Acetaminophen [[place] 1 tab PO BID PRN 01/06/18 03/14/22 History 5-325] [place]-3 Fatty Acids/Fish Oil [Fish 1 cap PO DAILY 01/06/18 03/14/22 History Oil 1,000 mg Softgel] Vitamin E (Dl,Tocopheryl Acet) 200 unit PO DAILY 01/06/18 03/14/22 History [Vitamin E] ALPRAZolam [Xanax] 0.25 mg PO DAILY PRN 06/17/21 03/14/22 History Escitalopram [Lexapro] 20 mg PO DAILY 06/17/21 03/14/22 History Fluticasone Nasal [place] [Flonase 1 spray EA NOSTRIL DAILY 06/17/21 03/14/22 History Nasal [place]] Loratadine 10 mg PO DAILY 06/17/21 03/14/22 History Losartan Potassium 100 mg PO DAILY 06/17/21 03/14/22 History Multivitamins, Thera [Multivitamin 1 tab PO DAILY 06/17/21 03/14/22 History (formulary)] Vitamin D3 With Vit C (Unknown 1 tab PO DAILY 06/17/21 03/14/22 History Strength) Chlorthalidone [Hygroton] 25 mg PO DAILY 03/14/22 03/14/22 History NIFEdipine [Adalat CC] 60 mg PO HS 03/14/22 03/14/22 History Allergies Allergy/AdvReac Type Severity Reaction Status Date / Time amoxicillin [From Augmentin] Allergy Diarrhea Verified 03/14/22 21:15 baclofen Allergy Unknown Verified 03/14/22 21:15 clavulanic acid Allergy Diarrhea Verified 03/14/22 21:15 [From Augmentin] diclofenac [From Cataflam] Allergy Itching Verified 03/14/22 21:15 hydromorphone [From Dilaudid] Allergy Itching Verified 03/14/22 21:15 lisinopril Allergy Swelling Verified 03/14/22 21:15 face Physical Exam Vitals: Vital Signs Temp Pulse Resp BP Pulse Ox 03/14/22 20:45 66 15 101/69 92 L 03/14/22 19:31 97.5 F L 68 18 102/70 93 L 03/14/22 19:22 97.5 F L 68 18 102/70 91 L Intake and Output 03/14/22 03/14/22 03/15/22 14:59 22:59 06:59 Other: Weight 71.668 kg Results CBC & Chem 7: 03/14/22 19:25 03/14/22 19:55 Labs: Abnormal Lab Results - Last 24 Hours (Table) 03/14/22 03/14/22 Range/Units 19:25 19:55 WBC 10.7 H (3.8-10.6) k/uL Sodium 134 L (137-145) mmol/L BUN 19 H (7-17) mg/dL
[2022-03-15] MEDS ORDERED: INFLUENZA VACC (6 MOS-64 YRS) 60 MCG/0.5 ML SYRINGE IM ONE (05:44)
[2022-03-15] MEDS: HEPARIN SODIUM,PORCINE/PF 5,000 UNIT/0.5 ML SYRINGE SQ SCH ×2 (08:17→15:12)
[2022-03-15] MEDS: CHLORTHALIDONE 25 MG TAB PO SCH (08:17)
[2022-03-15] MEDS: LOSARTAN 50 MG TAB PO SCH (08:17)
[2022-03-15] MEDS: ASPIRIN 325 MG TAB PO SCH (08:17)
[2022-03-15] MEDS: ATORVASTATIN 40 MG TAB PO SCH (08:17)
--- NOTE | 2022-03-15 11:55 | P.CNNES ---
History of Present Illness Consult date: 03/15/22 Requesting physician: Hallie Arellano Reason for Consult: left hemispheric resolved, TIA History of Present Illness: This is a 62-year-old with medical history of hypertension, hypercholestremia, tobacco use who presented emergency department because of recurrent transient left-sided weakness. Patient stated that in the last 1 week she had 4 episode of transient left-sided weakness and yesterday was her fourth event happened around 4:30 PM and she noticed her left upper and lower extremity was weak lasted for 20 minutes. Denied any numbness, difficulty getting her words out, swallowing any visual disturbance. She said yesterday she had that prior to the 6:30 event Ally in the afternoon she had a similar presentation or her left leg was weak and it was a short in duration. She denies any auras prior to the ev ent. She denies any loss of consciousness with these episodes. She said that her limbs just give out. Denies any history of stroke or TIAs in the past. She said that she has history of hypertension and the her a blood pressure medication was modified the in which her blood pressure has been running low in the 90s systolic. Patient was taking ASA daily. Patient smokes a bit more than a pack a day for years. Denies of any illicit drug use. She socially drinks alcohol. Some other workup during his hospital visit consisted of: Initial blood pressure on presentation is 102/70. Patient glucose on presentation is 105 POC. As a result a stroke pager was activated by the ED team and on presentation the patient had NIH score of 6 that improved to 3. ED team spoke with Dr. Lee (Stroke attending). It seems that the patient refused alteplase. Because of the patient's improvement symptoms therefore the risk outweighed the benefit. Eventually patient's symptoms has resolved. CT of the head is reported as no acute intracranial process. No intracranial hemorrhage. CT angiography of the head and neck was reported as no evidence of dissection of the cervical internal carotid arteries or vertebral arteries or any evidence of significantis at the carotid bifurcation. No evidence of intracranial high- grade stenosis or intracranial aneurysm. EKG is reported as sinus rhythm. Prolonged QT interval. Abnormal EKG. Review of Systems Review of system: The 12 point system was reviewed and apparent positive and negative per HPI. Past Medical History Past Medical History: Hypertension Additional Past Medical History / Comment(s): trigeminy History of Any Multi-Drug Resistant Organisms: None Reported Past Surgical History: Orthopedic Surgery Additional Past Surgical History / Comment(s): both shoulders Past Psychological History: Anxiety, Depression Smoking Status: Current every day smoker Past Alcohol Use History: Daily Past Drug Use History: Marijuana - Past Family History Mother Family Medical History: Hypertension Medications and Allergies Home Medications Medication Instructions Recorded Confirmed Type Cyclobenzaprine [Flexeril] 10 mg PO BID PRN 01/06/18 03/14/22 History Escitalopram [Lexapro] 10 mg PO DAILY 01/06/18 03/14/22 History Hydrocodone/Acetaminophen [[place] 1 tab PO BID PRN 01/06/18 03/14/22 History 5-325] [place]-3 Fatty Acids/Fish Oil [Fish 1 cap PO DAILY 01/06/18 03/14/22 History Oil 1,000 mg Softgel] Vitamin E (Dl,Tocopheryl Acet) 200 unit PO DAILY 01/06/18 03/14/22 History [Vitamin E] ALPRAZolam [Xanax] 0.25 mg PO DAILY PRN 06/17/21 03/14/22 History Escitalopram [Lexapro] 20 mg PO DAILY 06/17/21 03/14/22 History Fluticasone Nasal [place] [Flonase 1 spray EA NOSTRIL DAILY 06/17/21 03/14/22 History Nasal [place]] Loratadine 10 mg PO DAILY 06/17/21 03/14/22 History Losartan Potassium 100 mg PO DAILY 06/17/21 03/14/22 History Multivitamins, Thera [Multivitamin 1 tab PO DAILY 06/17/21 03/14/22 History (formulary)] Vitamin D3 With Vit C (Unknown 1 tab PO DAILY 06/17/21 03/14/22 History Strength) Chlorthalidone [Hyg[place]] 25 mg PO DAILY 03/14/22 03/14/22 History NIFEdipine [Adalat CC] 60 mg PO HS 03/14/22 03/14/22 History Allergies Allergy/AdvReac Type Severity Reaction Status Date / Time amoxicillin [From Augmentin] Allergy Diarrhea Verified 03/14/22 21:15 baclofen Allergy Unknown Verified 03/14/22 21:15 clavulanic acid Allergy Diarrhea Verified 03/14/22 21:15 [From Augmentin] diclofenac [From Cataflam] Allergy Itching Verified 03/14/22 21:15 hydromorphone [From Dilaudid] Allergy Itching Verified 03/14/22 21:15 lisinopril Allergy Swelling Verified 03/14/22 21:15 face Physical Examination - Vital Signs Vital Signs: Vital Signs Temp Pulse Pulse Resp BP BP Pulse Ox 03/15/22 11:26 97.9 F 51 L 16 127/82 94 L 03/15/22 08:25 56 L 16 03/15/22 08:13 98.1 F 56 L 16 120/72 93 L 03/15/22 04:00 97.7 F 53 L 12 128/72 94 L 03/14/22 23:25 98.2 F 54 L 12 118/73 94 L 03/14/22 20:45 66 15 101/69 92 L 03/14/22 19:31 97.5 F L 68 18 102/70 93 L 03/14/22 19:22 97.5 F L 68 18 102/70 91 L Intake and Output 03/14/22 03/15/22 03/15/22 22:59 06:59 14:59 Intake Total 180 Balance 180 Intake: Oral 180 Other: Voiding Method Toilet Toilet # Voids 1 Weight 71.668 kg GENERAL: The patient is lying in bed and is not in acute distress. CHEST: The heart rate is regular rate rhythm. No murmurs to auscultation. LUNG: Clear to auscultation bilaterally no wheezing noted throughout. Not labored breathing. ABDOMEN/GI: Bowel sounds present in all 4 quadrants. No tenderness to palpation throughout. NEUROLOGICAL: Higher mental function: The patient is awake, alert, oriented to self, place and time. Patient is following commands. No aphasia and no neglect. Cranial nerves: The pupils are round, equal and reactive to light and accommodation. Visual ashley are full to confrontation throughout. Extraocular movement is intact no nystagmus is noted. Facial sensation is normal to touch throughout. The facial strength is normal throughout. Hearing is normal bilaterally to hand rub. Tongue is midline and moved [id number] without any difficulty. No dysarthria is noted. Shoulder shrug is normal bilaterally. Motor: The strength is 5 over 5 throughout. Normal tone and bulk. Cerebellum: Normal finger to nose heel to beck bilaterally. Sensation: Sensation is normal to touch throughout. Reflexes (right/left): 2+ throughout. Plantars are downgoing bilaterally. Results - Laboratory Findings CBC and BMP: 03/14/22 19:25 03/14/22 19:55 Abnormal Lab Findings: Abnormal Labs 03/14/22 03/14/22 19:25 19:55 WBC 10.7 H Sodium 134 L BUN 19 H Assessment and Plan Assessment: Acute recurrent transient weakness on left upper and lower for past one week (had 4 episodes in the last one week): TIA. Hypertension Hypercholestremia Tobacco use Plan: I ordered MRI of the brain with and without. Patient was continued on her home dose of aspirin 325 daily in addition I start Plavix 75 mg daily. Patient to be on dual antiplatelets for 21 days and after 21 days stop aspirin but continue Plavix. Patient stated that she could not tolerate Lipitor and she was tried on different statins but it seems that she was started on statin by the ED if she has any side effects from the statin recommend to stop it. I ordered a routine EEG because of recurrent episodes to rule out any underlying the seizure or discharges which seems unlikely. 2-D echo, lipid panel is ordered and is pending I ordered as well TSH Continue neuro-checks. On cardiac monitoring. PT, OT and CE[employer]ING CLEANER are consulted Patient was counseled on tobacco cessation We'll defer the rest of the medical management to the primary team For DVT prophylaxis the patient is on subcu heparin 5000 units every 8 hours. Recommend the patient follow up with a neurologist as outpatient within 1-2 weeks. If unable to get the EEG as an inpatient since would not be done until Thursday thinking that be performed as an outpatient. I highly recommend the patient stay here overnight especially with a recurrent episodes. Thank you for the consultation Time with Patient: Greater than 30
[2022-03-15 12:01] LABS: HCT 41.1 % (34.0-46.0); HGB 13.9 gm/dL (11.4-16.0); MCH 32.5 pg (25.0-35.0); MCHC 33.9 g/dL (31.0-37.0); MCV 95.8 fL (80.0-100.0); Mean Platelet Volume 8.4; Platelet Count 188 k/uL (150-450); RBC 4.29 m/uL (3.80-5.40); RDW 13.2 % (11.5-15.5); WBC 7.2 k/uL (3.8-10.6)
[2022-03-15] MEDS: CLOPIDOGREL 75 MG TAB PO SCH (12:51)
--- NOTE | 2022-03-15 14:50 | P.PN ---
Subjective Progress Note Date: 03/15/22 Hospital course: Patient is a very pleasant 62-year-old female with a past medical history of hypertension and tobacco dependency. She presented to the emergency department with a chief complaint of left upper and lower extremity weakness accompanied by her difficulties with speech. Patient reports sudden development of left upper and left lower extremity numbness and weakness accompanied by difficulty with speech. Patient reports she initially had an episode earlier in the day in which her left lower extremity became weak requiring her to sit down as she felt like her leg was going out on her but states this resided after approximately 5 minutes. She then states later that evening she developed the sudden onset upper and lower extremity weakness/numbness on her left side and was having word finding difficulties as well as garbled speech. She resorts to speech impair ent lasted approximately 2-3 minutes but left upper and lower extremity weakness did not subside until approximately 20-30 minutes later. 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 While in route to the hospital patient's symptoms began to improve. She underwent full evaluation in the emergency department. Blood glucose upon arrival was 105. CBC, coags, and CMP were completed. CBC revealed mild leukocytosis with WBC count of 10.7 and CMP revealed mild hyponatremia with sodium of 134 labs otherwise unremarkable. Troponin 0.015 and TSH of 1.730. CT brain negative for acute intercranial abnormality. CTA head and neck negative for evidence of dissection or significant stenosis and showing no evidence of intracranial stenosis or aneurysm. EKG revealed normal sinus rhythm at 68 bpm with no noted T wave or ST abnormality showing no signs of acute ischemia. Chest x-ray negative for acute cardiopulmonary process consistent with previous cardiomegaly when compared to imaging completed 06/17/21. Patient was admitted under our services with consultation to neurology. Currently patient's previous neurological symptoms of left upper and lower extremity weakness/numbness and aphasia remain subsided. Physical examination: Patient seen and fully evaluated at the bedside. Patient continues to report for resolution of previously reported neurological deficits including left upper and lower extremity weakness and aphasia. Patient denied having any headache, lightheadedness, dizziness, changes in her vision or hearing, chest pain, palpitations, shortness of breath, or recently experiencing any swelling or pain in her extremities. Patient scheduled to undergo MRI later today as well as echocardiogram. General: non toxic, no distress, appears at stated age Derm: warm, dry Head: atraumatic, normocephalic, symmetric Eyes: EOMI, no lid lag, anicteric sclera Mouth: no lip lesion, mucus membranes moist Cardiovascular: S1S2 reg, systolic murmur, positive posterior tibial pulse bilateral, Lungs: CTA bilateral, no rhonchi, no rales , no accessory muscle use Abdominal: soft, nontender to palpation, no guarding, no appreciable organomegaly Ext: no gross muscle atrophy, no edema, no contractures Neuro: CN II-XI grossly intact, no focal neuro deficits. GCS 15. Psych: Alert, oriented, appropriate affect Assessment and plan of care: TIA Left upper and lower extremity weakness accompanied by difficulties with speech -Continue neuro checks every 4 hours -Fall precautions -Neurology consult -Echocardiogram -MRI -EEG -Cardiac monitoring -PT consult, CHIEF GAUGER bala -Counseled on importance of smoking cessation -Follow-up lipid panel -Continue with aspirin, statin Leukocytosis, was likely due to acute stressor and has resolved. Hypertension -Monitor vital signs and continue daily medication regimen with losartan chlorthalidone, and Procardia. DVT prophylaxis -Heparin subcu The patient is admitted with an anticipated less than 2 midnight stay for evaluation of TIA. CODE STATUS: Full Code Discussed with: Patient Anticipated discharge date: 1-[address]: Home A total of 35 minutes was spent on the care of this complex patient more than 50% of the time was spent in counseling and care coordination. I reviewed the documentation as provided by the RAVEN above, who is the original author of this note. I agree with the documented assessment and plan, with the following changes: none Objective - Vital Signs Vital signs: Vital Signs Temp 98.1 F 03/15/22 08:13 Pulse 56 L 03/15/22 08:25 Resp 16 03/15/22 08:25 BP 120/72 03/15/22 08:13 Pulse Ox 93 L 03/15/22 08:13 FiO2 Intake & Output 03/14/22 03/15/22 03/15/22 18:59 06:59 18:59 Intake Total 180 Balance 180 Weight 71.668 kg Intake: Oral 180 Other: Voiding Method Toilet Toilet # Voids 1 - Labs CBC & Chem 7: 03/15/22 11:18 03/14/22 19:55 Labs: Abnormal Lab Results - Last 24 Hours (Table) 03/14/22 03/14/22 Range/Units 19:25 19:55 WBC 10.7 H (3.8-10.6) k/uL Sodium 134 L (137-145) mmol/L BUN 19 H (7-17) mg/dL
[2022-03-15] MEDS: NICOTINE 21MG/24HR PATCH TRANSDERM SCH (15:11)
--- NOTE | 2022-03-15 15:44 | MR ---
EXAMINATION TYPE: MR brain wo/w con DATE OF EXAM: 03/15/2022 COMPARISON: None HISTORY: left sided weakness CONTRAST: Standard multiplanar, multisequence MRI departmental protocol images were obtained without contrast a nd with 7 mL intravenous Gadavist gadolinium contrast. Ventricles of normal size. There is no mass effect or midline shift. No sign of intracranial hemorrha ge. Calvarium is intact. There is mild cerebral cortical atrophy. Corpus callosum is intact. Sella turcica is intact. No evidence of orbital mass. On the FLAIR images there are scattered white matter high signal foci in the periventricular region m easuring up to 1.5 cm. Total numbers less than 15 and most of these measure less than 4 mm. There is bulky appearance of the choroid plexus measuring 16 mm in the right lateral ventricle in the temporal horn. No hydrocephalus. No evidence of orbital mass. IMPRESSION: Mild atrophy. There is bulky right sided choroid plexus in the temporal horn of the right lateral laz tricle but no definite mass. This is likely of no clinical significance. White matter mild signal changes in the periventricular region are nonspecific and could relate to mi crovascular ischemia or demyelinating disease.
[2022-03-15 17:16] LABS: Chol/HDL Ratio 4.79 Ratio; LDL Cholesterol,Calculated 182.9 mg/dL (0.0-131.0)
[2022-03-15] MEDS ORDERED: HYDROcodone/APAP 5-325MG 1 EACH TAB PO PRN (17:54)
[2022-03-16] MEDS: HEPARIN SODIUM,PORCINE/PF 5,000 UNIT/0.5 ML SYRINGE SQ SCH ×2 (00:16→10:07)
[2022-03-16 08:45] VITALS: BP 148/90; TEMP 97.8
[2022-03-16] MEDS: ASPIRIN 325 MG TAB PO SCH (08:46)
[2022-03-16] MEDS: ATORVASTATIN 40 MG TAB PO SCH (08:46)
[2022-03-16] MEDS: CLOPIDOGREL 75 MG TAB PO SCH (08:46)
[2022-03-16] MEDS: CHLORTHALIDONE 25 MG TAB PO SCH (08:47)
[2022-03-16] MEDS: LOSARTAN 50 MG TAB PO SCH (08:47)
[2022-03-16 08:53] VITALS: PULSE 56; RESP 16
[2022-03-16] MEDS ORDERED: ESCITALOPRAM 10 MG TAB PO SCH (09:00)
[2022-03-16] MEDS ORDERED: ESCITALOPRAM 20 MG TAB PO SCH (09:00)
[2022-03-16] MEDS: NICOTINE 21MG/24HR PATCH TRANSDERM SCH (10:07)
--- NOTE | 2022-03-16 12:15 | P.PN ---
Subjective Progress Note Date: 03/16/22 The patient is seen at bedside and states no further episodes of weakness. She continues to feel at baseline. Objective - Vital Signs Vital signs: Vital Signs Temp 97.8 F 03/16/22 08:43 Pulse 56 L 03/16/22 08:51 Resp 16 03/16/22 08:51 BP 148/90 03/16/22 08:43 Pulse Ox 99 03/16/22 08:43 FiO2 Intake & Output 03/15/22 03/16/22 03/16/22 18:59 06:59 18:59 Intake Total 1440 180 Balance 1440 180 Intake: Oral 1440 180 Other: Voiding Method Toilet Toilet Toilet # Voids 2 3 - Exam GENERAL: The patient is lying in bed and is not in acute distress. NEUROLOGICAL: Higher mental function: The patient is awake, alert, oriented to self, place and time. Patient is following commands. No aphasia and no neglect. Cranial nerves: The pupils are round, equal and reactive to light and accommodation. Visual ashley are full to confrontation throughout. Extraocular movement is intact no nystagmus is noted. Facial sensation is normal to touch throughout. The facial strength is normal throughout. Hearing is normal bilaterally to hand rub. Tongue is midline and moved [id number] without any difficulty. No dysarthria is noted. Shoulder shrug is normal bilaterally. Motor: The strength is 5 over 5 throughout. Normal tone and bulk. Cerebellum: Normal finger to nose heel to beck bilaterally. Sensation: Sensation is normal to touch throughout. Reflexes (right/left): 2+ throughout. Plantars are downgoing bilaterally. Some other workup during his hospital visit consisted of: Lipid panel is triglycerides 197, cholesterol is 281, LDL is 182 and HDL is [address] is [address] of the head is reported as no acute intracranial process. No intracranial hemorrhage. CT angiography of the head and neck was reported as no evidence of dissection of the cervical internal carotid arteries or vertebral arteries or any evidence of significantis at the carotid bifurcation. No evidence of intracranial high- grade stenosis or intracranial aneurysm. MRI of the brain is reported as mild atrophy. There is bulky right-sided choroid plexus and temporal horn on the right lateral ventricle but not definite of mass. This is likely of no focal significance. White matter mild signal changes in the periventricular region are nonspecific and could relate to microvascular ischemia would remind disease. I personally reviewed MRI Brain with Dr. Erwin and he felt was masslike enhancement over the right lateral ventricle within the choroid plexus and there is asymmetric choroids was cyst over the left more than the right. There is no stroke - Labs CBC & Chem 7: 03/15/22 11:18 03/14/22 19:55 Labs: Abnormal Lab Results - Last 24 Hours (Table) 03/15/22 Range/Units 11:18 Triglycerides 197.00 H (0.00-149.00) mg/dL Cholesterol 281.00 H (0.00-200.00) mg/dL LDL Cholesterol, Calc 182.9 H (0.0-131.0) mg/dL Assessment and Plan Assessment: Acute recurrent transient weakness on left upper and lower for past one week (had 4 episodes in the last one week): I feel likely due mass-like over the right lateral ventricle stemming in choroid. MRI Brain is negative for stroke and I do not feel these episodes are TIA. I feel more due to mass-like effect and rule out seizure. Hypertension Hypercholestremia Tobacco use Plan: Because of large mass-like over the right posterior later ventricle stemming in choroid plexus: I recommend patient to follow-up with neurosurgeon as outpatient. I ordered a routine EEG because of recurrent episodes to rule out any underlying the seizure or discharges but no tech today so will get it done as outpatient since does not want to stay till tomorrow. If normal recommend prolonged EEG. I started the patient on Vimpat 50 1 tab bid as seizure prophylaxis (because of mass-like and I feel possibly causing her symptoms). Not Keppra since stated has severe depression and is very cook which Keppra can worsens her symptoms. Will defer intermediate frame tender antiepileptic use to her outpatient neurologist. Patient was continued on her home dose of aspirin 325 daily. No need for dual antiplatelets. Patient could not tolerate statin in past. Continue neuro-checks. On cardiac monitoring. PT, OT and LIVE OUT NANNY are consulted Patient was counseled on tobacco cessation We'll defer the rest of the medical management to the primary team For DVT prophylaxis the patient is on subcu heparin 5000 units every 8 hours. Recommend the patient follow up with a neurologist as outpatient within 1-2 weeks and neurosurgeon as outpatient. The plan is discussed with the patient and primary team. Otherwise no additional work-up is needed. Time with Patient: Less than 30
[2022-03-16] MEDS: LACOSAMIDE 50 MG TABLET PO SCH ×2 (12:31→13:18)
--- NOTE | 2022-03-16 13:26 | P.DS ---
Providers Date of admission: 03/14/22 21:06 Expected date of discharge: 03/16/22 Attending physician: Shanell Quintana MD Consults: 03/14/22 21:10 Consult Physician Urgent Consulting Provider: Dante Baez Consult Reason/Comments: left hemiparesis-resolved, tia Do you want consulting provider notified?: Yes Primary care physician: Jon Prior Hospital Course: Discharge Diagnosis: Recurrent episodes of transient weakness to left upper and lower extremities are accompanied by aphasia. MRI brain revealing mild atrophy and bulky right-sided choroid plexus in the temporal horn of the right lateral ventricle, unable to rule out underlying mass along with mild white matter signal changes in the periventricular region possibly related to microvascular ischemia or demyelinating disease. Patient was evaluated by neurology. Recommending continuation of aspirin and discontinuation of Plavix. Neurology started patient on Vimpat 50 mg twice a day and recommending she follow up outpatient with neurosurgeon for evaluation and neurology for EEG. Hypertension, monitor vital signs closely and continue daily medication regimen with nifedipine, losartan, and chlorthalidone. Hyperlipidemia, total cholesterol 281, triglycerides 197, and LDL 182.9. Patient started on atorvastatin 40 mg daily. Tobacco dependence recommend smoking cessation., Leukocytosis, likely secondary to stressor. Resolved. Hospital Course: Patient is a very pleasant 62-year-old female with a past medical history of hypertension and tobacco dependency. She presented to the emergency department with a chief complaint of left upper and lower extremity weakness accompanied by her difficulties with speech. Patient reports sudden development of left upper and left lower extremity numbness and weakness accompanied by difficulty with speech. Patient reports she [facility] lower extremity became weak requiring her to sit down as she felt like her leg was going out on her but states this resided after approximately 5 minutes. She then states later that evening she developed the sudden onset upper and lower extremity weakness/numbness on her left side and was having word finding difficulties as well as garbled speech. She resorts to speech impairment lasted approximately 2-3 minutes but left upper and lower extremity weakness did not subside until approximately 20-30 minutes later. 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 While in route to the hospital patient's symptoms began to improve. She underwent full evaluation in the emergency department. Blood glucose upon arrival was 105. CBC, coags, and CMP were completed. CBC revealed mild leukocytosis with WBC count of 10.7 and CMP revealed mild hyponatremia with sodium of 134 labs otherwise unremarkable. Troponin 0.015 and TSH of 1.730. CT brain negative for acute intercranial abnormality. CTA head and neck negative for evidence of dissection or significant stenosis and showing no evidence of intracranial stenosis or aneurysm. EKG revealed normal sinus rhythm at 68 bpm with no noted T wave or ST abnormality showing no signs of acute ischemia. Chest x-ray negative for acute cardiopulmonary process consistent with previous cardiomegaly when compared to imaging completed 06/17/21. Patient was admitted under our services with consultation to neurology. Currently patient's previous neurological symptoms of left upper and lower extremity weakness/numbness and aphasia remain subsided. Patient was monitored overnight. She underwent an MRI which revealed mild atrophy and bulky right-sided choroid plexus in the temporal horn of the right lateral ventricle, unable to rule out underlying mass along with mild white matter signal changes in the periventricular region possibly related to microvascular ischemia or demyelinating disease. Patient had no further episodes since arrival to our facility. Patient was evaluated by neurology. Recommending continuation of aspirin and discontinuation of Plavix. Neurology started patient on Vimpat 50 mg twice a day and recommending she follow up outpatient with neurosurgeon for evaluation and neurology for EEG. Medically, patient is stable for discharge at this time and to follow up outpati ent with PCP, neurology, and neurosurgery. Physical examination: General: non toxic, no distress, appears at stated age Derm: warm, dry Head: atraumatic, normocephalic, symmetric Eyes: EOMI, no lid lag, anicteric sclera Mouth: no lip lesion, mucus membranes moist Cardiovascular: S1S2 reg, systolic murmur, positive posterior tibial pulse bilateral, Lungs: CTA bilateral, no rhonchi, no rales , no accessory muscle use Abdominal: soft, nontender to palpation, no guarding, no appreciable organomegaly Ext: no gross muscle atrophy, no edema, no contractures Neuro: CN II-XI grossly intact, no focal neuro deficits. GCS 15. Psych: Alert, oriented, appropriate affect A total of 36 minutes of time were spent preparing this complex discharge summary. Pt was discharged on 03/16/22 at 1:08 PM. I reviewed the documentation as provided by the RAVEN above, who is the original author of this note. I agree with the documented assessment and plan, with the following changes: none Patient Condition at Discharge: Stable Plan - Discharge Summary New Discharge Prescriptions: New Atorvastatin [Lipitor] 40 mg PO DAILY 30 Days #30 tab Lacosamide [Vimpat] 50 mg PO BID 60 Days #120 tab Aspirin 81 mg PO DAILY 30 Days #30 tab Continue Vitamin E (Dl,Tocopheryl Acet) [Vitamin E] 200 unit PO DAILY [place]-3 Fatty Acids/Fish Oil [Fish Oil 1,000 mg Softgel] 1 cap PO DAILY Hydrocodone/Acetaminophen [[place] 5-325] 1 tab PO BID PRN PRN Reason: Pain Cyclobenzaprine [Flexeril] 10 mg PO BID PRN PRN Reason: Muscle Spasm Escitalopram [Lexapro] 10 mg PO DAILY Vitamin D3 With Vit C (Unknown Strength) 1 tab PO DAILY ALPRAZolam [Xanax] 0.25 mg PO DAILY PRN PRN Reason: Anxiety Escitalopram [Lexapro] 20 mg PO DAILY NIFEdipine [Adalat CC] 60 mg PO HS Multivitamins, Thera [Multivitamin (formulary)] 1 tab PO DAILY Loratadine 10 mg PO DAILY Fluticasone Nasal [place] [Flonase Nasal [place]] 1 spray EA NOSTRIL DAILY Losartan Potassium 100 mg PO DAILY Chlorthalidone [Hygroton] 25 mg PO DAILY Discharge Medication List Cyclobenzaprine [Flexeril] 10 mg PO BID PRN 01/06/18 [History] Escitalopram [Lexapro] 10 mg PO DAILY 01/06/18 [History] Hydrocodone/Acetaminophen [[place] 5-325] 1 tab PO BID PRN 01/06/18 [History] [place]-3 Fatty Acids/Fish Oil [Fish Oil 1,000 mg Softgel] 1 cap PO DAILY 01/06/18 [History] Vitamin E (Dl,Tocopheryl Acet) [Vitamin E] 200 unit PO DAILY 01/06/18 [History] ALPRAZolam [Xanax] 0.25 mg PO DAILY PRN 06/17/21 [History] Escitalopram [Lexapro] 20 mg PO DAILY 06/17/21 [History] Fluticasone Nasal [place] [Flonase Nasal [place]] 1 spray EA NOSTRIL DAILY 06/17/21 [History] Loratadine 10 mg PO DAILY 06/17/21 [History] Losartan Potassium 100 mg PO DAILY 06/17/21 [History] Multivitamins, Thera [Multivitamin (formulary)] 1 tab PO DAILY 06/17/21 [History] Vitamin D3 With Vit C (Unknown Strength) 1 tab PO DAILY 06/17/21 [History] Chlorthalidone [Hygroton] 25 mg PO DAILY 03/14/22 [History] NIFEdipine [Adalat CC] 60 mg PO HS 03/14/22 [History] Aspirin 81 mg PO DAILY 30 Days #30 tab 03/16/22 [Rx] Atorvastatin [Lipitor] 40 mg PO DAILY 30 Days #30 tab 03/16/22 [Rx] Lacosamide [Vimpat] 50 mg PO BID 60 Days #120 tab 03/16/22 [Rx] Follow up Appointment(s)/Referral(s): Mane Narvaez MD [STAFF PHYSICIAN] - 1 Week (Follow-up with cardiology, recommend echocardiogram as discussed.) Franklin Rodriguez MD [REFERRING] - 3 Days (PCP- please call thursday to schedule appointment. ) Leesa Scherer MD [Medical Doctor] - 1 Week (Neurologist- please call thursday to schedule appointment. ) JUAN ANTONIO SOTO DO [REFERRING] - 3 Days (Neurosurgeon, make appointment for follow up. Please call Thursday to schedule.) Patient Instructions/Handouts: Transient Ischemic Attack (DC) Activity/Diet/Wound Care/Special Instructions: Activity: As tolerated. Take breaks as needed. Diet: Heart healthy and carb consistent diet. Avoid salts, or foods with hidden salts such as canned or boxed foods and frozen dinners. Extra salt makes your heart work harder and traps the fluid in your body for longer. Special Instructions: Take all of your medications as directed and remember to keep all of your doctor's appointments and follow-up as needed. It is important free to follow-up with neurosurgeon, please call Thursday to schedule appointment. You will also need to follow up with neurologist as discussed for completion of EEG. Recommend smoking cessation. Remember, prescriptions were sent to pharmacy and after further reviewing MRI, neurology took you off of Plavix. Attempted to call pharmacy to cancel this prescription, however pharmacy was closed. 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 Do not take Plavix. Thank you for allowing us to participate in your care, it was truly a pleasure having you for our patient!!! Discharge Disposition: HOME SELF-CARE
== END 2022-03-16 13:34 | disposition home or self-care (01) ==
LOC: EC 19:00 → 3SCARD 21:06
PROVIDERS: ADMIT Internal Medicine; ATTEND Internal Medicine
DX: G45.9 Transient cerebral ischemic attack, unspecified (principal); R47.01 Aphasia; G81.94 Hemiplegia, unspecified affecting left nondominant side; I67.2 Cerebral atherosclerosis; E87.1 Hypo-osmolality and hyponatremia; R00.8 Other abnormalities of heart beat; F32.A Depression, unspecified; F41.9 Anxiety disorder, unspecified; F12.90 Cannabis use, unspecified, uncomplicated; F17.200 Nicotine dependence, unspecified, uncomplicated; I11.9 Hypertensive heart disease without heart failure; D72.829 Elevated white blood cell count, unspecified; E78.00 Pure hypercholesterolemia, unspecified; R94.31 Abnormal electrocardiogram [ECG] [EKG]; Z79.899 Other long term (current) drug therapy; Z79.82 Long term (current) use of aspirin; Z88.8 Allergy status to other drugs, medicaments and biological substances; Z88.1 Allergy status to other antibiotic agents; Z82.49 Family history of ischemic heart disease and other diseases of the circulatory system; Z79.02 Long term (current) use of antithrombotics/antiplatelets; Z23 Encounter for immunization
CPT/HCPCS: 96372; 99291; 36415; 93005; 80061; 80053; 84443; 84484; 85025; 85027; 85610; 85730; 71046; 70496; 70450; 70498; 70553; 90686; G0378 ×3; G0008; A9585; Q9967; J1644

== ENCOUNTER → 2022-03-18 | Outpatient (CLI) | payer MEDICARE, OTHER ==
--- NOTE | 2022-03-18 12:41 | XR ---
EXAMINATION TYPE: XR shoulder complete LT DATE OF EXAM: 03/18/2022 12:16 PM INDICATION: Patient age:Female; 62 years old; Reason for study: M19.012; COMPARISON: Left shoulder radiograph 10/07/2010 TECHNIQUE: The left shoulder was examined in AP, axillary, internally rotated and scapular Y project ions. . FINDINGS: No acute fracture or dislocation. Severe osteophytic changes with joint space narrowing and marginal spurring. Osseous loose body along the posterior lateral aspect of the shoulder joint. Surgical clip projects over the medial aspect of the glenoid again. AC joint appears to be intact. The remaining po rtions of the visualized chest are unremarkable. IMPRESSION: 1. No acute osseous pathology. 2. Severe osteoarthritic changes of the left shoulder with a loose body identified.
--- NOTE | 2022-03-18 12:42 | XR ---
EXAMINATION TYPE: XR thoracic spine complete DATE OF EXAM: 03/18/2022 12:16 PM INDICATION: Patient age:Female; 62 years old; Reason for study: M47.812,M47.814,M19.012; [facility]. COMPARISON: None TECHNIQUE: 3 views of the thoracic spine in frontal, lateral, swimmer's projections. FINDINGS: No evidence of acute fracture. No evidence of loss vertebral body height. Multilevel disc space narro wing with endplate sclerosis and anterior osteophytosis. No spinal listhesis. Slight increase in thor acic kyphosis. IMPRESSION: 1. No acute osseous pathology. 2. [id number] multilevel degenerative disc disease.
--- NOTE | 2022-03-18 12:44 | XR ---
EXAMINATION TYPE: XR cervical spine w flex/ext DATE OF EXAM: 03/18/2022 12:16 PM INDICATION: Patient age:Female; 62 years old; Reason for study: M47.812,M47.814,M19.012; [facility]. COMPARISON: Cervical spine radiographs 10/07/2010. TECHNIQUE: The cervical spine was imaged in frontal, lateral, oblique, flexion, and extension project ions. FINDINGS: The osseous structures show normal alignment without evidence of an acute fracture. There are osteoph ytes noted throughout the cervical spine on the anterior and lateral aspects of the vertebral bodies. The intervertebral disk spaces are preserved. Pedicles are intact. Soft tissues are within normal limits. The odontoid appears intact. IMPRESSION: 1. No fracture or dislocation. 2. Mild degenerative disc disease changes of the cervical spine.
== END | disposition home or self-care (01) ==
LOC: RADXRMAIN 11:35
PROVIDERS: ATTEND Physical Medicine & Rehabilitation
DX: M51.34 Other intervertebral disc degeneration, thoracic region (principal); M50.30 Other cervical disc degeneration, unspecified cervical region; M19.012 Primary osteoarthritis, left shoulder; M47.812 Spondylosis without myelopathy or radiculopathy, cervical region; M47.814 Spondylosis without myelopathy or radiculopathy, thoracic region
CPT/HCPCS: 72052; 72072

== ENCOUNTER → 2022-03-26 | Outpatient (CLI) | payer MEDICARE, OTHER ==
--- NOTE | 2022-03-26 22:24 | EEG ---
ELECTROENCEPHALOGRAM REPORT PREAMBLE: This is a 62-year-old female, who has recurrent right-sided weakness. She was recently admitted to [facility] for increased right-sided weakness that was progressing over 4 weeks. Denies any loss of consciousness. CURRENT MEDICATIONS: 1. Vitamins. 2. [place]. 3. Vimpat. 4. Lexapro. 5. Flexeril. EEG FINDINGS: This is a 21-channel digital EEG recorded with video component, utilizing 10/20 international system with referential and bipolar montages. Background consists of well developed, well regulated moderate voltage activity in 9 hertz alpha. Background is posterior dominant and reactive to eye opening and closing. Photic driving response was not seen. Some drowsiness was seen with appearance of bilaterally symmetric theta frequency rhythm. Deeper stages of sleep were not seen. Hyperventilation was not done. No focal or generalized epileptiform activity was seen. EKG channel showed no obvious arrhythmia. IMPRESSION: This is a normal awake and drowsy EEG. No focal, lateralized or epileptiform activity was seen. MMODL / IJN: [id number] /
== END ==
LOC: NEUROMAIN 12:58
PROVIDERS: ATTEND Student in an Organized Health Care Education/Training Program
DX: R53.1 Weakness (principal); F17.200 Nicotine dependence, unspecified, uncomplicated; Z88.0 Allergy status to penicillin; Z88.1 Allergy status to other antibiotic agents; Z88.5 Allergy status to narcotic agent; Z88.8 Allergy status to other drugs, medicaments and biological substances
CPT/HCPCS: 95816

== ENCOUNTER 2023-12-18 12:23 | Emergency (ER) | payer MEDICARE, OTHER ==
[2023-12-18] MEDS ORDERED: IBUPROFEN 600 MG TAB PO ONE (13:42)
--- NOTE | 2024-01-25 14:10 | XR ---
[facility] - Radiology Report Patient: Nancy Wilburn Ordering Physician: Unknown, Unknown ID: [id number] Phone, Pager: Phone: N/A Pager: N/A : [phone] Age/Gender: 63Y, F Primary Location: N/A Procedure: XR wrist complete LT Study Date: 12/18/2023 1:55:00 PM EXAMINATION TYPE: Wrist X-Ray Complete Left DATE OF EXAM: 12/18/2023 CLINICAL HISTORY: pain TECHNIQUE: Frontal, lateral and oblique images of the left wrist are obtained. COMPARISON: None. FINDINGS: There is tiny curvilinear density noted at the ulnar styloid. This could reflect small chip fracture. There is vague lucency noted involving the distal radius. On the lateral view posteriorly there is vague lucency. There is also soft tissue swelling. Virtually nondisplaced distal radial frac ture is difficult to exclude. Severe narrowing first carpometacarpal joint space with bony collapse s een. IMPRESSION: As above
== END 2023-12-18 15:49 | disposition home or self-care (01) ==
LOC: EC 12:23
CPT/HCPCS: 99283

== ENCOUNTER → 2024-01-22 | Outpatient (CLI) | payer MEDICARE, OTHER ==
--- NOTE | 2024-01-22 18:58 | BD ---
EXAMINATION TYPE: Axial Bone Density DATE OF EXAM: 01/22/2024 CLINICAL HISTORY: 63 years old Female. ICD-10 CODE: M85.80 DISORDER OF BONE, Z13.820 Height: 61.2 Weight: 182 FRAX RISK QUESTIONS: Family History (Parent hip fracture): yes Glucocorticoids (More than 3mos): yes, for copd (Ex: prednisone, prednisolone, methylprednisolone, dexamethasone, and hydrocortisone). History of Fracture in Adulthood: yes 3. Menopause before 45: no at 48 Rheumatoid Arthritis: yes Current Tobacco Use: yes, states she quit recently RISK FACTORS HISTORY OF: hx of right foot fx, and left shoulder, left wrist just recently History of Wrist Fracture: right, as an adult lt wrist recently MEDICATIONS: motrin, vit d, bp meds, hx of statins for cholesterol, EXAM MEASUREMENTS: Bone mineral densitometry was performed using the [employer] System. Bone mineral density as measured about the Lumbar spine is: ----- L1-L4(G/cm2): 1.065 T Score Values are as follows: ----- L1: -1.1 ----- L2: -1.0 ----- L3: -1.5 ----- L4: -0.5 ----- L1-L4: -1.0 Z Score Values are as follows: ----- L1: -1.1 ----- L2: -1.0 ----- L3: -1.5 ----- L4: -0.5 ----- L1-L4: -1.0 Bone mineral density has: Increased 3.4% since study of: 08.13.2021 Bone mineral density about the R hip (g/cm2): 1.00 Bone mineral density about the L hip (g/cm2): 1.073 T Score values are as follows: -----R Neck: -0.9 -----L Neck: -0.5 -----R Total: -0.1 -----L Total: 0.5 Z Score values are as follows: -----R Neck: 0.2 -----L Neck: 0.5 -----R Total: 0.6 -----L Total: 1.2 Bone mineral density has: Increased 0.2% since study of: 08.13.2021 FRAX%s: The graph provided illustrates a 23.3% chance for a major osteoporotic fx and a 3.1% chance f or the hips probability for fx in 10 years time. IMPRESSION: Normal (Values between +1 and -1 indicate normal bone mass). Consider repeating this study in 5 year s or sooner if there is some new clinical indication. NOTE: T-SCORE=SD OF THE YOUNG ADULT MEAN. [facility], , 01/22/2024 6:56 PM
--- NOTE | 2024-01-25 11:09 | MM ---
Reason for Exam: Screening (asymptomatic). Last mammogram was performed 2 year(s) and 5 month(s) ago. Patient History: Menarche at age 14. First Full-Term at age 24. Postmenopausal. Risk Values: Oliva 5 year model risk: 1.3%. NCI Lifetime model risk: 5.5%. Prior Study Comparison: 09/04/2016 Screening Mammogram, [facility] [place]. 08/30/2017 Screening Mammogram, [facility] [place]. 08/13/2021 Bilateral Screening Mammogram, [facility]. Tissue Density: There are scattered areas of fibroglandular density. Findings: Analyzed By CAD. Right breast: There is no suspicious group of microcalcifications or new suspicious mass. Left breast: There is no suspicious group of microcalcifications or new suspicious mass. Overall Assessment: Negative, BI-RAD 1 Management: Screening Mammogram of both breasts in [address] [facility] will attempt to contact patient to return for supplemental views and ultrasound if indicated. Patient should continue monthly self-breast exams. A clinical breast exam by your physician is recommended on an annual basis. This exam should not preclude additional follow-up of suspicious palpable abnormalities. Note on Oliva scores and lifetime risk: 1. A Oliva score greater than 3% is considered moderate risk. If this is the case, consider specialist referral to assess eligibility for a risk reducing agent. 2. If overall lifetime risk for the development of breast cancer is 20% or higher, the patient may qualify for future screening with alternating mammogram and breast MRI. [facility], , 01/25/2024 11:06 AM. Electronically signed and approved by: Siddhartha Paige DO
== END | disposition home or self-care (01) ==
LOC: RADMAMWWP 12:47
PROVIDERS: ATTEND Family Medicine
DX: M85.80 Other specified disorders of bone density and structure, unspecified site
CPT/HCPCS: 77063; 77067; 77080

== ENCOUNTER → 2024-02-10 | Outpatient (CLI) | payer MEDICARE, OTHER ==
--- NOTE | 2024-02-10 12:29 | CTL ---
EXAMINATION TYPE: CT Low Dose Lung DATE OF EXAM ORDERED: 02/10/2024 HISTORY: Nicotine dependence, quit smoking April 2023, 45 pack-year history. Lung cancer screening CT DLP: 75.[address] CTDI: 2.3 mGy Automated exposure control for dose reduction was used. SCREENING VISIT: First screening visit COMPARISON: Chest radiograph 02/03/2024 TECHNIQUE: Low dose computed tomography scan was performed through the chest at 1 mm thick sections a nd reconstructed images in multiple planes at 1 mm and [address] DIAGNOSTIC QUALITY: Satisfactory FINDINGS: Nodules: No clinically significant pulmonary nodule. LUNGS: COPD: Severity: Mild Fibrosis: Severity: None Lymph nodes: None Other findings: None RIGHT PLEURAL SPACE: Effusion: None Calcification: None Thickening: None Pneumothorax: None LEFT PLEURAL SPACE: Effusion: None Calcification: None Thickening: None Pneumothorax: None HEART: Heart Size: Normal Coronary Calcification: Small Pericardial Effusion: None OTHER FINDINGS: Upper abdomen: Small hiatal hernia. Bony thorax: Left shoulder arthropathy with surgical anchor within the left scapula. Mid thoracic spi ne anterior hypertrophic change. Supraclavicular region: None Other: None IMPRESSION: 1. No clinically significant pulmonary nodule. 2. Mild COPD changes. CT LUNG RAD AND CT CHEST RECOMMENDATION: Lung-Rad 1 Negative: Continue annual screening with LDCT in 12 months. S Modifier (other clinically significant findings): None [facility], , 02/10/2024 12:27 PM
== END | disposition home or self-care (01) ==
LOC: RADCTMAIN 11:53
PROVIDERS: ATTEND Internal Medicine Critical Care Medicine
CPT/HCPCS: 71271

== ENCOUNTER → 2024-03-07 | Outpatient (CLI) | payer MEDICARE, OTHER | END | disposition home or self-care (01) | LOC: LABWHC1 12:33 | PROVIDERS: ATTEND Orthopaedic Surgery | DX: M19.012 Primary osteoarthritis, left shoulder (principal) | CPT/HCPCS: 87070 ==